=== PATIENT | female | born 1980 | race African-American/Black ===

== ENCOUNTER 2016-09-03 07:42 | Emergency (ER) | payer OTHER ==
[~2016-09-03] VITALS: Ht 162.6 cm; Wt 88.3 kg
[~2016-09-03 07:42] MED LIST: AUGMENTIN875 MG PO; FLEXERIL5 MG PO; IBUPROFEN800 MG PO; Motrin PO; NORCO 5/3251 TABLET PO; Percocet 5/325,Endoc PO; VITAFOL-OB+DHA1 EACH PO; ZOFRAN4 MG PO
[2016-09-03] MEDS ORDERED: KEFLEX500 MG PO ×2 (08:08→08:23)
[2016-09-03 08:20] VITALS: BP 119/49
== END 2016-09-03 08:25 | disposition home or self-care (01) ==
LOC: EME 07:42
DX: L03.012 Cellulitis of left finger (principal)
CPT/HCPCS: 99281; 99283

== ENCOUNTER 2016-09-14 09:12 | Emergency (ER) | payer OTHER ==
[~2016-09-14] VITALS: Ht 167.6 cm; Wt 85.5 kg
[~2016-09-14 09:12] MED LIST changes: +KEFLEX500 MG PO
[2016-09-14] MEDS ORDERED: KEFLEX500 MG PO (11:03)
[2016-09-14 11:13] VITALS: BP 121/55
== END 2016-09-14 11:19 | disposition home or self-care (01) ==
LOC: EME 09:12
DX: L03.012 Cellulitis of left finger (principal); M79.645 Pain in left finger(s)
CPT/HCPCS: 73140; 99281; 99283

== ENCOUNTER 2017-03-01 19:03 | Emergency (ER) | payer OTHER ==
[~2017-03-01] VITALS: Ht 162.6 cm; Wt 84.2 kg
[2017-03-01 20:13] LABS: HEMATOCRIT 36.2 % (36.0-46.0); MCH 28.6 PG (29.0-34.0); MCV 89.4 FL (83-99); MEAN PLAT.VOLUME 10.1 uM^3 (9.5-12.4); PLATELET COUNT 241 K/uL (156-360); RBC DIS.WIDTH-CV 14.1 % (11.8-14.6); RBC DIS.WIDTH-SD 45.9 % (39-53); RED BLOOD COUNT 4.05 M/uL (3.80-5.20); WHITE BLOOD COUNT 6.1 K/uL (4.1-10.2)
[2017-03-01 20:33] LABS: CHLORIDE 108 mEq/L (99-109); POTASSIUM 3.9 mEq/L (3.7-5.4); SODIUM 141 mEq/L (136-147)
[2017-03-01 20:35] LABS: GLUCOSE 88 mg/dL (70-99)
[2017-03-01 20:36] LABS: ANION GAP 10 MEQ/L (2-14)
[2017-03-01 20:39] LABS: GFR ESTIMATE (CALCULATED) > 59 mL/min/
[2017-03-01 20:40] LABS: UREA NITROGEN (BUN) 11 mg/dL (9-23)
[2017-03-01 20:47] LABS: QUANTITATIVE HCG < 4.0 MIU/ML
[2017-03-01 21:15] LABS: ADD MIUA? YES; BILIRUBIN NEGATIVE; BLOOD LARGE; COLOR YELLOW ((YELLOW)); GLUCOSE (STRIP) NEGATIVE; KETONES NEGATIVE; LEUKOCYTES NEGATIVE; NITRITE NEGATIVE; PROTEIN (STRIP) 30; SPECIFIC GRAVITY 1.019 (1.000-1.030); UROBILINOGEN 0.2 MG/DL (0.2-1.0)
[2017-03-01 21:19] LABS: BACTERIA NONE SEEN /HPF; EPITHELIAL CELLS 1+ /HPF; MUCUS TRACE /LPF; RED BLOOD CELLS 30-40 /HPF (0-5); UCUL ADDED? NO; WHITE BLOOD CELLS 0-5 /HPF (0-5)
[2017-03-01 21:59] VITALS: BP 116/65
== END 2017-03-01 22:00 | disposition home or self-care (01) ==
LOC: EME 19:03
PROVIDERS: Nurse Practitioner Family; Physician Assistant Medical
DX: R42 Dizziness and giddiness (principal); E86.0 Dehydration
CPT/HCPCS: 80048; 81003; 84702; 85027; 93005; 99281; 99284; J7030

== ENCOUNTER 2017-04-02 07:42 | Emergency (ER) | payer OTHER ==
[~2017-04-02] VITALS: Ht 167.6 cm; Wt 83.1 kg
[2017-04-02 08:12] LABS: EOSINOPHIL (%) 1.3 % (0-5); EOSINOPHIL COUNT 0.1 K/uL (0-0.3); HEMATOCRIT 37.1 % (36.0-46.0); IMMATURE GRANULOCYTE (%) 0.2 % (0.0-0.7); LYMPHOCYTE COUNT 2.3 K/uL (1.0-2.8); MCH 29.1 PG (29.0-34.0); MCHC 32.1 G/DL (30.0-36.0); MCV 90.7 FL (83-99); MEAN PLAT.VOLUME 10.1 uM^3 (9.5-12.4); MONOCYTE (%) 5.7 % (3-12); MONOCYTE COUNT 0.3 K/uL (0-0.8); NEUTROPHIL (%) 42.8 % (45-76); PLATELET COUNT 234 K/uL (156-360); RBC DIS.WIDTH-CV 13.9 % (11.8-14.6); RBC DIS.WIDTH-SD 46.4 % (39-53); RED BLOOD COUNT 4.09 M/uL (3.80-5.20); WHITE BLOOD COUNT 4.7 K/uL (4.1-10.2)
[2017-04-02 08:36] LABS: ANION GAP 7 MEQ/L (2-14); CHLORIDE 107 MEQ/L (99-109); SAMPLE HEMOLYSIS CHECK 0; SAMPLE ICTERIC CHECK 0; SAMPLE LIPEMIA CHECK 0; SODIUM 139 MEQ/L (136-147)
[2017-04-02 08:42] LABS: GFR ESTIMATE (CALCULATED) > 59 mL/min/; GLUCOSE 95 mg/dL (70-99); UREA NITROGEN (BUN) 12 mg/dL (9-23)
[2017-04-02 08:47] LABS: QUANTITATIVE HCG < 4.0 MIU/ML
[2017-04-02] MEDS ORDERED: ANTIVERT25 MG PO (10:04)
[2017-04-02 10:42] VITALS: BP 128/64
== END 2017-04-02 10:44 | disposition home or self-care (01) ==
LOC: EME 07:42
PROVIDERS: Emergency Medicine
DX: R42 Dizziness and giddiness (principal); R51 Headache
CPT/HCPCS: 70450; 80048; 84702; 85025; 93005; 99281; 99284

== ENCOUNTER 2017-08-18 08:08 | Emergency (ER) | payer OTHER ==
[~2017-08-18] VITALS: Ht 167.6 cm; Wt 86.4 kg
[~2017-08-18 08:08] MED LIST changes: +ANTIVERT25 MG PO
[2017-08-18] MEDS ORDERED: FLONASE16 G1 BOTH NARES (09:20)
[2017-08-18] MEDS ORDERED: VENTOLIN HFA18 GM IH (09:20)
[2017-08-18 09:47] VITALS: BP 134/86
== END 2017-08-18 09:48 | disposition home or self-care (01) ==
LOC: EME 08:08
DX: B34.9 Viral infection, unspecified (principal); R05 Cough; B19.10 Unspecified viral hepatitis B without hepatic coma
CPT/HCPCS: 71046; 94640; 99281; 99284